=== PATIENT | female | born 1955 | race Caucasian/White ===

== ENCOUNTER → 2023-03-20 | Outpatient (CLI) | payer OTHER ==
[~2023-03-20] MED LIST: ERYT.5TO LEFTEYE; LEVSOD125 PO; Norco 5-325 Ta1 EACH PO
[2023-03-20 11:03] LABS: BASOPHILS ABSOLUTE AUTO 0.03 K/mm3 (0.00-0.23); BASOPHILS PERCENT AUTO 0 % (0-2); EOSINOPHILS ABSOLUTE AUTO 0.25 K/mm3 (0.00-0.68); EOSINOPHILS PERCENT AUTO 4 % (0-6); Hematocrit 41.5 % (33.0-51.0); Hemoglobin 13.7 g/dL (11.5-16.0); IMMATURE GRAN ABSOLUTE AUTO 0.02 K/mm3 (0.00-0.10); IMMATURE GRAN PERCENT AUTO 0 % (0-1); LYMPHOCYTES ABSOLUTE AUTO 1.74 K/mm3 (0.84-5.20); LYMPHOCYTES PERCENT AUTO 24 % (21-46); MONOCYTES ABSOLUTE AUTO 0.41 K/mm3 (0.16-1.47); MONOCYTES PERCENT AUTO 6 % (4-13); Mean Corpuscular HGB 29.8 pg (26.0-34.0); Mean Corpuscular Volume 90 fL (80-100); Mean Platelet Volume 9.1 fL (9.1-12.4); NEUTROPHILS ABSOLUTE AUTO 4.79 K/mm3 (1.96-9.15); NEUTROPHILS PERCENT AUTO 66 % (41-73); Platelet Count 369 K/mm3 (150-400); RDW Coefficient Variation 13.1 % (11.7-14.2); Red Blood Cell Count 4.59 M/mm3 (3.80-5.20); White Blood Cell Count 7.24 K/mm3 (4.00-11.30)
[2023-03-20 11:26] LABS: Albumin, Blood 4.2 g/dL (3.4-5.0); Bilirubin, Total 0.2 mg/dL (0.1-1.0); Bun/Creatinine Ratio 15.3 (12.0-20.0); Calcium, Blood 9.4 mg/dL (8.5-10.1); Creatinine, Blood 0.85 mg/dL (0.40-1.00); Globulin, Blood 4.2 g/dL (2.2-4.0); Potassium, Blood 3.4 mmol/L (3.5-5.5); Total Protein, Blood 8.4 g/dL (6.4-8.2)
== END | disposition home or self-care (01) ==
LOC: LAB SHORT 11:00 → LAB 11:00
PROVIDERS: Emergency Medicine
DX: K92.1 Melena (principal)
CPT/HCPCS: 80053; 85025

== ENCOUNTER 2023-07-29 13:17 | Day surgery (SDC) | payer OTHER ==
[~2023-07-29] VITALS: Ht 167.6 cm; Wt 71.0 kg
[~2023-07-29 13:17] MED LIST changes: +Lactated Ringer's 0 ML IV ONE; +Lactated Ringer's 1,000 ML IV ONE; +Lidocaine 2% 5 ML SDV ONE; +Lidocaine HCl/Pf 1% 5 ML VIAL ONE; +Methylene Blue 1% 100 MG/10 ML VIAL ONE; +propofoL 50 ML IV ONE
[2023-07-29] MEDS ORDERED: Lactated Ringer's 1,000 ML IV ONE (14:04)
[2023-07-29 15:15] VITALS: BP 112/74
== END 2023-07-29 15:05 | disposition home or self-care (01) ==
LOC: ORSCSDS 13:17
PROVIDERS: Surgery
PROC: 0DJD8ZZ Inspection of Lower Intestinal Tract, Via Natural or Artificial Opening Endoscopic (ICD-10-PCS; principal; 2023-07-29 14:30)
DX: R19.5 Other fecal abnormalities (principal); E03.9 Hypothyroidism, unspecified; Z79.899 Other long term (current) drug therapy
CPT/HCPCS: J2001; J2704; J7120; Q9968